=== PATIENT | female | born 2005 | race Hispanic/Latino ===

== ENCOUNTER 2024-06-14 12:44 | Emergency (ER) | payer SELFPAY ==
[~2024-06-14] VITALS: Ht 167.6 cm; Wt 99.3 kg
[2024-06-14 12:59] VITALS: PULSE 87; RESP 18; TEMP 99; O2SAT 100
[2024-06-14 13:46] LABS: CLARITY,URINE CLEAR (CLEAR); COLOR,URINE YELLOW (YELLOW); GLUCOSE, URINE NEGATIVE (NEGATIVE); KETONES,URINE NEGATIVE (NEGATIVE); LEUKOCYTE ESTERASE ,URINE TRACE (NEGATIVE); NITRITE,URINE POSITIVE (NEGATIVE); PH,URINE 6.5 (5 - 7); PROTEIN,URINE DIPSTICK NEGATIVE (NEGATIVE)
[2024-06-14 13:47] LABS: BILIRUBIN,URINE NEGATIVE (NEGATIVE); URINE UROBILINOGEN 0.2 mg/dL (0.2 - 1)
[2024-06-14 13:48] LABS: PREGNANCY TEST, URINE NEGATIVE (NEGATIVE)
[2024-06-14 14:00] LABS: WBC,URINE (MAN) 21-50 /HPF (0-5)
[2024-06-14 14:01] LABS: BACTERIA,URINE MANY /HPF; EPITHELIAL CELLS,URINE MANY /LPF; RBC,URINE 0-5 /HPF (0-5)
[2024-06-14] MEDS ORDERED: CEFDINIR300 MG PO (14:40)
== END 2024-06-14 14:48 | disposition home or self-care (01) ==
LOC: ER 12:50
DX: R50.9 Fever, unspecified (principal); N39.0 Urinary tract infection, site not specified; R31.9 Hematuria, unspecified; R30.0 Dysuria; M54.50 Low back pain, unspecified; R10.2 Pelvic and perineal pain
CPT/HCPCS: 81001; 81025; 99282